=== PATIENT | male | born 1990 | race Caucasian/White ===

== ENCOUNTER 2023-03-25 17:51 | Emergency (ER) | payer OTHER, BC ==
[2023-03-25] MEDS: Lidocaine 1% 10 ML MDV INJECT ONE ×2 (18:22→19:15)
[2023-03-25 19:12] VITALS: BP 166/64; PULSE 98
[2023-03-25] MEDS ORDERED: Lidocaine 1% 10 ML MDV ONE (19:14)
[2023-03-25] MEDS: cefTRIAXone 1 GM, Lidocaine 1% 2.1 ML IM ONE ×2 (20:00)
[2023-03-25] MEDS: Diphtheria,Pertussis(Acell),Tetanus Vaccine 0.5 ML Syringe IM ONE (20:14)
== END 2023-03-25 20:21 | disposition home or self-care (01) ==
LOC: VM.ED 17:51
DX: S60.551A Superficial foreign body of right hand, initial encounter (principal); W45.8XXA Other foreign body or object entering through skin, initial encounter; Y93.01 Activity, walking, marching and hiking
CPT/HCPCS: 73120-RT; 90471; 90715; 96372; 99283-25; J0696; J3490